=== PATIENT | male | born 1960 | race Caucasian/White ===

== ENCOUNTER → 2019-12-13 08:52 | Outpatient (CLI) | payer BC, SELFPAY ==
--- NOTE | 2019-12-13 08:59 | US_ITS ---
PROCEDURE: US KIDNEY CLINICAL INDICATION: HEMATURIA COMPARISON: No exams were available for comparison FINDINGS: The right kidney is [id number]. No hydronephrosis, cortical thinning, or renal mass or perinephric fluid collection is evident. The left kidney is [id number]. No hydronephrosis, cortical thinning, or renal mass or perinephric fluid collection is evident. IMPRESSION: Unremarkable bilateral renal ultrasound Dictated by: Americo Guillermo MD 12/13/2019 17:07 Electronically signed by Americo Guillermo MD in [place] 12/13/2019 17:07
--- NOTE | 2019-12-13 08:59 | US_ITS ---
PROCEDURE: US URINARY BLADDER CLINICAL INDICATION: HEMATURIA Gross hematuria COMPARISON: No exams were available for comparison FINDINGS: There is a small focal area of increased echogenicity along the posterior aspect of the urinary bladder on the right measuring 9 x 6 mm.. The remaining bladder has an unremarkable appearance. Full bladder volume is estimated to be 950 mL. Prostate is enlarged at 5 cm. Postvoid bladder volume is estimated to be at 56 mL. IMPRESSION: 1. Small nodule along the posterior bladder wall on the right at 9 x 6 mm. This could be inflammatory or neoplastic. Cystoscopy may provide further evaluation. 2. Mild amount of postvoid residual urine of 56 mL with a moderate amount of full bladder volume urine at 950 mL Dictated by: Americo Guillermo MD 12/13/2019 17:10 Electronically signed by Americo Guillermo MD in [place] 12/13/2019 17:10
== END ==
PROVIDERS: PCP Family Medicine; Visit Provider Family Medicine
DX: R31.9 Hematuria, unspecified (principal)
CPT/HCPCS: 76770; 76857

== ENCOUNTER → 2020-06-14 12:05 | Outpatient (CLI) | payer BC, SELFPAY ==
[2020-06-14 14:37] LABS: Coronavirus 19 IgG Antibody Negative (Negative)
[2020-06-14 14:38] LABS: Coronavirus 19 IgM Antibody Negative (Negative)
== END ==
PROVIDERS: Visit Provider Internal Medicine Gastroenterology
DX: Z01.818 Encounter for other preprocedural examination (principal); Z12.11 Encounter for screening for malignant neoplasm of colon
CPT/HCPCS: 36415; 86328

== ENCOUNTER 2020-06-16 11:05 | Day surgery (SDC) | payer BC, SELFPAY ==
[2020-06-11 14:16] VITALS: BMI 26.9
[2020-06-16] VITALS (7 sets, daily range): BP systolic 94–126; BP diastolic 58–80; PULSE 48–86; RESP 18–20; TEMP 36.6–36.7; O2SAT 93–99
[2020-06-16 11:54] LABS: POC Glucose,Bedside 141 (70-110)
--- NOTE | 2020-06-16 12:36 | HMH.ANESCL ---
[facility] Anesthesia Checklist - Patient Identification Patient Identification: Arm Band - Structural Data Admitted From: Home Planned Operative Procedure/s: colonoscopy Consent for Planned Operative Procedure(s) Verified: Yes Verified Documents: Surgical Consent, History and Physical - NPO Status Verified Time NPO: 00:00 - Additional verifications Anesthesia Reactions: No - Airway Assessment C-Spine Mobility Assessed: Yes (mp2) TMJ Mobility Assessed: Yes Dentition: Good Dentition - Neurological Assessment Level of Consciousness: Awake, Alert - Anesthesia Plan Anesthesia Risk discussed: Yes Anesthesia Plan: Verified ASA Class: III Anesthesia Type: MAC [facility] History I have reviewed the patient's past medical history: Yes Medical History: Reports:: Cancer (bladder), Diabetes Mellitus Type 2, Hyperlipidemia Denies:: Diabetes Mellitus Type 1, Internal Pacemaker, MRSA, Seizures *Have you ever received a pneumonia vaccine?: No *Have you received a flu vaccine this season?: Yes Anesthesia experience/problems:: nac Other Surgeries: Yes: Appendectomy, Other. No: Pacemaker Amputation: No Fractures: No - *Social History Smoking Status: Current every day smoker Tobacco Type: cigarettes # Packs/Day (cigarettes): 1 Alcohol Intake: never Substance Use Type: denies use *Occupational Status:: employed Housing: house *Travel in the last 8 weeks: None Family Hx:: No significant family history
--- NOTE | 2020-06-16 13:00 | HMH.PROC ---
[facility] Procedure Note Procedure Note:: Colonoscopy Procedure Report: Colonoscopy with cold snare polypectomy Endoscopist: Artur Reyes II, MD Referring physician: Jess Berger M.D. Date of Procedure: June 16, 2020 Equipment: Olympus 180 variable stiffness pediatric colonoscope Sedation: MAC sedation Indication: Mr. Espinal is a 60-year-old gentleman who is here for follow-up screening/surveillance colonoscopy. He has had prior colonoscopies with colon polyps (February 1999, December 2001, December 2004 and December 2009. Most of the polyps that have been removed have been hyperplastic but his last colonoscopy in December 2009 revealed 2 polyps (tubular adenoma x1/hyperplastic polyp x1) which were removed. He also has a strong family history of colon cancer and his father had colon cancer at the age of 63. He reports no abdominal pain, weight loss, change in his bowel habits or rectal bleeding. He did have some hematuria and is being followed by Dr. Jerardo Bray urology. Procedure: Prior to the procedure, a history and physical exam was performed, and patient's medications and allergies were reviewed. The risks, benefits and alternatives of the sedation and procedure were discussed with the patient. All questions were answered and informed consent was obtained. The patient was brought to the procedure room. Patient identification and proposed procedure were verified by the physician and the nurse. The patient was placed in a left lateral decubitus position and the scope was passed under direct vision. Throughout the procedure, the patient's blood pressure, pulse, and oxygen saturations were monitored continuously. The colonoscopy was accomplished without difficulty. The patient tolerated the procedure well. Findings: On digital rectal examination there was normal rectal tone. There were no external hemorrhoids. The prostate was 2+, smooth, soft, symmetric without nodules. The colonoscope was introduced through the anal canal to the rectum and advanced to the cecum. The ileocecal valve and appendiceal orifice were identified. The scope was advanced a short distance into the ileum which appeared grossly normal. The scope was then withdrawn into the colon. There were 7 diminutive colon polyps removed (cecum x1 (3 mm), descending x1 (4 mm) and rectum x5 (hyperplastic appearing polyps that ranges in size from 3 to 4 mm)). All of these polyps were removed via cold snare polypectomy. There were a few diverticuli in the distal descending and sigmoid colon. Upon retroflexion within the rectum there were grade 1-2 internal hemorrhoids.The preparation was excellent throughout with Bear Preparation Score of 9. The cecal time was 12 minutes. Impression: 1. Diminutive colon polyps x7 2. Mild left-sided diverticulosis 3. Grade 1-2 internal hemorrhoids Plan: I will follow up the polyp pathology and recommend repeat colonoscopy again in 5 years based upon the patient's family history and the present polyp histology. I would encourage bulk fiber supplementation on a long-term daily maintenance basis.
== END 2020-06-16 13:55 | disposition home or self-care (01) ==
LOC: OUTP 11:07
PROVIDERS: PCP Family Medicine; Visit Provider Internal Medicine Gastroenterology
PROC: 0DJD8ZZ Inspection of Lower Intestinal Tract, Via Natural or Artificial Opening Endoscopic (ICD-10-PCS; CPT 45378; principal; 2020-06-16 12:00)
DX: Z12.11 Encounter for screening for malignant neoplasm of colon (principal); K62.1 Rectal polyp; Z86.010 Personal history of colon polyps; K63.5 Polyp of colon; K57.30 Diverticulosis of large intestine without perforation or abscess without bleeding; K64.0 First degree hemorrhoids; Z80.0 Family history of malignant neoplasm of digestive organs; Z85.51 Personal history of malignant neoplasm of bladder; E11.9 Type 2 diabetes mellitus without complications; E78.5 Hyperlipidemia, unspecified; Z72.0 Tobacco use; Z79.84 Long term (current) use of oral hypoglycemic drugs
CPT/HCPCS: 45385; 82962